=== PATIENT | female | born 1985 | race Asian ===

== ENCOUNTER → 2021-02-22 08:08 | Outpatient (CLI) | payer OTHER, SELFPAY ==
--- NOTE | 2021-02-22 08:10 | DI.US.S_ITS ---
PROCEDURE: US PELVIC COMPLETE INDICATIONS: MENORRHAGIA WITH CLOTTING TECHNIQUE: Real-time scanning was performed of the pelvic organs, with image documentation. Additional endovaginal scanning was necessary due to incomplete visualization of the adnexal and endometrial structures by transabdominal scanning. COMPARISON: None. FINDINGS: Uterus: Uterus is retroverted normal in size at 7.5 x 5.6 x 4.1 cm. Mid anterior intramural fibroid measuring 1.7 x 1.2 x 1 cm. The endometrium measures 1 mm in combined thickness. Echogenic focus at the fundus measuring 1.7 x 0.7 x 0.5 cm. No internal vascularity is identified. Ovaries: Within normal limits. Right ovary measures 2.9 x 2 x 2 cm, volume of 6 cc. Left ovary measures 3 x 2.9 x 1.6 cm, volume of 7 cc. Other: No pathologic free abdominal or pelvic fluid. IMPRESSION: 1. Echogenic focus within the endometrial canal at the fundus measuring 1.7 cm. This could represent a small clot or endometrial polyp. Less likely submucosal fibroid. -If clinically indicated saline infused sonohysterogram (SIS) could be performed for further evaluation. -Follow-up ultrasound in 6-12 weeks could also be performed. 2. Small intramural fibroid. 3. Normal sonographic appearance of the ovaries. Dictated by: eMek Yates M.D. on 02/22/2021 at 9:02 Approved by: Meek Yates M.D. on 02/22/2021 at 9:14
== END ==
PROVIDERS: PCP Registered Nurse Diabetes Educator; Referring Provider Registered Nurse Diabetes Educator; Visit Provider Registered Nurse Diabetes Educator
DX: N92.0 Excessive and frequent menstruation with regular cycle (principal); D25.1 Intramural leiomyoma of uterus
CPT/HCPCS: 76830; 76856

== ENCOUNTER → 2021-02-22 09:05 | Outpatient (CLI) | payer OTHER, SELFPAY ==
[2021-02-22 13:33] LABS: COVID19 -Nasal RAPID Negative (Negative)
== END ==
PROVIDERS: PCP Registered Nurse Diabetes Educator; Referring Provider Physician Assistant; Visit Provider Physician Assistant
DX: Z20.822 Contact with and (suspected) exposure to COVID-19 (principal)
CPT/HCPCS: 87635

== ENCOUNTER → 2021-02-23 08:13 | Outpatient (CLI) | payer OTHER, SELFPAY ==
--- NOTE | 2021-02-23 08:50 | PM.TREADMILL ---
Cardiac Stress Test Report Referral & Results Date Patient Seen: 02/23/21 Time Patient Seen: 08:30 Requesting provider: Bam Castro Indication: Elevated HR on exercise Rest ECG: NSR Procedure Note: Today following both written and verbal informed consent, the patient was exercised according to a standard [facility] protocol. The patient exercised for a total of 6 minutes 30 seconds achieving a maximum heart rate of 179. Patient's maximum systolic blood pressure was 150. This was an estimated 7.0 METs. Test terminated early due to rapid heart rate. Results are notable for exaggerated heart rate response to exercise with rapid increase into the 150s within 3 minutes and progression to 180 within 6 minutes. Normal sinus rhythm throughout. Normal blood pressure response to exercise. Patient was not feeling particularly fatigued at the end of the exercise, but felt like she had had ?a good workout.? No signs or symptoms of angina or presyncope. FA I +20% on active scale, but likely could have gone longer if allowed. No other EKG changes identified. Rapid recovery of tachycardia with rest. Impression: Low probability for ischemia. No obvious rhythm abnormality induced by exercise. May be natural variant. Consider EP consult if patient develops anginal or presyncopal symptoms at peak exercise. Please note: Actual ECG tracings can be found in the PACS system.
== END ==
PROVIDERS: PCP Registered Nurse Diabetes Educator; Referring Provider Registered Nurse Diabetes Educator; Visit Provider Registered Nurse Diabetes Educator
DX: R00.0 Tachycardia, unspecified (principal)
CPT/HCPCS: 93016; 93017; 93018

== ENCOUNTER → 2021-06-18 15:31 | Outpatient (CLI) | payer OTHER, SELFPAY ==
--- NOTE | 2021-06-18 15:32 | DI.US.S_ITS ---
PROCEDURE: US PELVIC COMPLETE INDICATIONS: 3 MONTH FOLLOW UP TECHNIQUE: Real-time scanning was performed of the pelvic organs, with image documentation. Additional endovaginal scanning was necessary due to incomplete visualization of the adnexal and endometrial structures by transabdominal scanning. COMPARISON: [facility], [place], US PELVIC COMPLETE, 02/22/2021, 8:29. FINDINGS: Uterus: Uterus is retroverted and normal in size at 7.4 x 5.8 x 5 cm. Mid anterior intramural fibroid measuring 0.9 x 0.6 x 0.5 cm. The endometrium measures 11 mm in combined thickness. Endometrium appears mildly complex. There is trace endometrial fluid. Echogenic focus within the endometrium measuring 2.6 x 2.3 x 1.8 cm. No internal vascularity is seen. It is uncertain if this corresponds to the same abnormality seen on the prior pelvic ultrasound 02/22/2021 as this appears more echogenic and less masslike. Ovaries: Right ovarian heterogeneous echogenic cyst measuring 1.7 x 1.5 x 1.2 cm. There is peripheral vascularity. Suspect corpus luteum. Right ovary measures 4.2 x 2.9 x 2.6 cm. Left ovary measures 3.6 x 2.5 x 1.1 cm. Other: No pathologic free abdominal or pelvic fluid. IMPRESSION: 1. Echogenic focus within the endometrial canal measuring 2.6 cm. No internal vascularity is seen. This could represent an endometrial polyp or debris. -Saline infusion sonohysterogram would be helpful for further evaluation. 2. Heterogeneous right ovarian cyst measuring 1.7 cm. Suspect corpus luteum or hemorrhagic cyst. 3. Trace endometrial fluid. 4. Small intramural fibroid. Dictated by: Meek Yates M.D. on 06/18/2021 at 16:51 Approved by: Meek Yates M.D. on 06/18/2021 at 17:13
== END ==
PROVIDERS: PCP Registered Nurse Diabetes Educator; Referring Provider Specialist; Visit Provider Specialist
DX: N92.0 Excessive and frequent menstruation with regular cycle (principal); R93.89 Abnormal findings on diagnostic imaging of other specified body structures; N83.201 Unspecified ovarian cyst, right side
CPT/HCPCS: 76856